=== PATIENT | male | born 2000 | race American Indian/Alaskan Native ===

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

== ENCOUNTER 2022-09-16 19:58 | Emergency (ER) | payer BC, MEDICAID, SELFPAY ==
--- NOTE | ~2022-09-16 | XR_ITS ---
EXAMINATION: XR HAND, RIGHT CLINICAL INFORMATION: Hyperextended third through fifth digits. COMPARISON: None available. TECHNIQUE: PA, lateral, and oblique views of the right hand. FINDINGS: No acute fractures or subluxation. No significant degenerative changes. No unexpected radiopaque foreign bodies. XR/XR hand RT min 3V IMPRESSION: No acute fractures or subluxation.
[2022-09-16 20:00] VITALS: BP 117/71; PULSE 72; RESP 18; TEMP 36.9; O2SAT 99; BMI 21.7
--- NOTE | 2022-09-16 20:00 | ED.UPPEXIN ---
HPI - Extremity Injury (Upper) General Chief Complaint: Extremity Injury, Upper <CHAR Acuna Last Filed: 09/16/22 20:04> Stated Complaint: right hand inj <CHAR Acuna Last Filed: 09/16/22 20:04> Time Seen by Provider: 09/16/22 20:08 <CHAR Acuna Last Filed: 09/16/22 20:04> Source: patient <CHAR Llamas Last Filed: 09/16/22 20:34> Mode of arrival: ambulatory <CHAR Llamas Last Filed: 09/16/22 20:34> Limitations: no limitations <CHAR Llamas Last Filed: 09/16/22 20:34> History of Present Illness HPI narrative: 22 year old male with past medical hisory of right boxer's fracture, mood disorders, anxiety and ADHD presents to ED as a walk in with right hand pain. Patient reports the pain started after playing basketball and falling on his oustretched hand, flexing the pinky finger underneath his hand. Pain started immediately, patient states he is unable to flex the finger fully. Patient reports the pain is worse with movement and better with rest, and localized mainly to the pinky without radiation. At this time denies numbness and tingling. Patient states he has a non-healing boxer's fracture in the right hand and is right-hand dominant. To note, when patient fell he did not hit his head or lose conciousness, and no preceding symptoms to fall <CHAR Llamas Last Filed: 09/16/22 20:34> Related Data Home Medications: Previous Rx's Medication Instructions Recorded ibuprofen 800 mg tablet 800 mg PO Q8H PRN pain #15 tabs 10/12/20 ibuprofen 600 mg tablet 600 mg PO Q6H PRN pain #60 tabs 11/13/20 <CHAR Acuna Last Filed: 09/16/22 20:04> Allergies/Adverse Reactions: Allergies Allergy/AdvReac Type Severity Reaction Status Date / Time No Known Allergies Allergy Verified 08/04/21 21:12 <CHAR Acuna Last Filed: 09/16/22 20:04> Review of Systems Review of Systems: Constitutional : No Weight loss, No Fever, No Chills, No Fatigue, No Malaise ENT/Mouth : No sore throat, No Rhinorrhea Eyes: No Eye Pain, No Swelling, No Redness Cardiovascular : No Chest Pain, No SOB, No Dyspnea on Exertion, No Orthopnea, No Edema, No Palpitations Respiratory : No Cough, No Sputum, No Wheezing Gastrointestinal : No Nausea, No Vomiting, No Diarrhea, No Constipation, No abdominal Pain, No Hematochezia, No Melena Genitourinary : No Dysuria, No Urinary Frequency, No Hematuria, Musculoskeletal : + joint pain, No Myalgias, + Joint Swelling Skin : No Skin Lesions, No rash Neuro : No Weakness, No Numbness, No Dizziness, No Headache Psych : No Anxiety/Panic, No Depression All other systems reviewed and are negative <CHAR Llamas - Last Filed: 09/16/22 20:34> Yes all other systems are reviewed and are negative <CHAR Llamas - Last Filed: 09/16/22 20:34> [facility] Past Medical History Attestation statement: The following information was validated with the patient. <CHAR Llamas - Last Filed: 09/16/22 20:34> Source: old records reviewed and nursing notes reviewed <CHAR Llamas - Last Filed: 09/16/22 20:34> Medical History: Medical History ADHD Anxiety Mood disorder <CHAR Acuna - Last Filed: 09/16/22 20:04> Social History Social History: Social History Alcohol intake: never Patient Tobacco Use Status: Never used Tobacco <CHAR Acuna - Last Filed: 09/16/22 20:04> Physical Exam Vital Signs: Vital Signs: Last Vital Signs Temp 98.5 F 09/16/22 20:00 Pulse 72 09/16/22 20:00 Resp 18 09/16/22 20:00 BP 117/71 09/16/22 20:00 Pulse Ox 99 09/16/22 20:00 O2 Del Method Room Air 09/16/22 20:00 BMI result Body Mass Index 21.7 <CHAR Acuna - Last Filed: 09/16/22 20:04> Vital Signs: Last Vital Signs Temp 98.5 F 09/16/22 20:00 Pulse 72 09/16/22 20:00 Resp 18 09/16/22 20:00 BP 117/71 09/16/22 20:00 Pulse Ox 99 09/16/22 20:00 O2 Del Method Room Air 09/16/22 20:00 BMI result Body Mass Index 21.7 vss <CHAR Llamas - Last Filed: 09/16/22 20:34> Appearance: Alert.? Oriented X3.? No acute distress.? Head: Normocephalic, atraumatic, no step-offs or deformities Eyes: Pupils equal, round and reactive to light.? Neck: Normal inspection.? Neck supple.? CVS: Normal heart rate and rhythm.? Pulses normal.? Respiratory: No respiratory distress.? Breath sounds normal.? Abdomen: Soft and nontender.? Skin: Skin warm and dry.? Normal skin color.? Normal skin turgor.? Extremities: No lower extremity edema.?+ 5/5 strength to bilateral upper and lower extremities. Painful ROM of R fifth digit with limited ROM due to pain. 2+ radial pulses equal and bilateral. No wrist drop. Cap refill intact to bilateral upper extremities. Neuro: Oriented X 3.? No motor deficit.? No sensory deficit. CN 2-12 intact <CHAR Llamas - Last Filed: 09/16/22 20:34> Course Course Course Narrative: RME: 22yo M w/no sig PMHx c/o right hand pain s/p hyperextension injury while playing basketball [employer]. Admits ball hit hand and extended. On exam +ttp to MCP digits 3-5. unable to extend at 5th DIP, concern for avulsion fx. finger to thumb opposition intact XRs ordered Full HPI, ROS and PE to be performed by primary ED provider. <CHAR Acuna - Last Filed: 09/16/22 20:04> Reevaluation(s) Reevaluation #1: Xray unremarkable. However, unable to assess ligaments and tendons if pain persists he should follow up with the orthopedic team as he may require an MRI for further evaluation. Will tamika-tape fingers. ?Recommend patient rest, ice and elevate the fifth digit. Educated patient on diagnosis and treatment plan, answered all question, patient verbalizes understanding. At this time patient will be discharged home, advised to return with new or worsening symptoms. Educated on worrisome signs and symptoms and when to return. At this time I feel comfortable discharge home. <CHAR Llamas - Last Filed: 09/16/22 20:34> Time: 20:32 <CHAR Llamas Last Filed: 09/16/22 20:34> Medical Decision Making Medical Decision Making MDM Narrative: 2015 22 year old male presents with right fifth digit pain secondary to fall on outstretched hand. Right hand dominant, denies numbness or tingling. Physical exam significant for no lower extremity edema.?+ 5/5 strength to bilateral upper and lower extremities. Painful ROM of R fifth digit with limited ROM due to pain. 2+ radial pulses equal and bilateral. No wrist drop. Cap refill intact to bilateral upper extremities. This is likely a sprain or a strain, unlikely fracture/dislocation. No signs of threatened limb or neurovascular compromise. plan- imaging . Offered pain meds refused. <CHAR Llamas Last Filed: 09/16/22 20:34> Differential Diagnosis Differential Diagnoses: The differential diagnosis associated with the presentation includes <CHAR Llamas Last Filed: 09/16/22 20:34> This is likely a sprain or a strain, unlikely fracture/dislocation. No signs of threatened limb or neurovascular compromise. <CHAR Llamas Last Filed: 09/16/22 20:34> Admission/Observation Consideration of admission/observation: Escalation of care including admission/observation considered <CHAR Llamas Last Filed: 09/16/22 20:34> not indicated <CHAR Llamas - Last Filed: 09/16/22 20:34> Independent Interpretation I performed an independent interpretation of an: Plain X-Ray <CHAR Llamas Last Filed: 09/16/22 20:34> Radiology Impression Discussion of test interpretation with radiology: I have reviewed the radiologist's reading. <CHAR Llamas - Last Filed: 09/16/22 20:34> External Record Review External record reviewed: Inpatient record, Office record, Outpatient record, Prior outpatient labs, Prior outpatient radiology, Primary care record and Outside ED record <CHAR Llamas - Last Filed: 09/16/22 20:34> Core Measures AMI core measures followed: Yes <CHAR Llamas - Last Filed: 09/16/22 20:34> Measure exclusions: not indicated <CHAR Llamas - Last Filed: 09/16/22 20:34> Critical Care Time Critical Care Time Critical Care Time: No <CHAR Llamas - Last Filed: 09/16/22 20:34> Discharge Plan Discharge Clinical Impression: Finger pain, right <CHAR Acuna - Last Filed: 09/16/22 20:04> Patient Disposition: Home, Self-Care <CHAR Acuna - Last Filed: 09/16/22 20:04> Instructions: R.I.C.E. Treatment (ED) <CHAR Acuna - Last Filed: 09/16/22 20:04> Additional Instructions: Take your medications as prescribed. If you were prescribed antibiotics today, it is important that you take your medication to their entirety, do not skip any doses, do not finish them early. Follow-up with your primary care provider this week. Pain persist you should see the orthopedic team you may require an MRI to investigate ligaments and tendons. Your x-ray did not show fractures or dislocations. Return to the emergency department with new or worsening symptoms. Such as fevers, chills, chest pain, shortness of breath, nausea, vomiting, dizziness, headache, vision changes, lethargy In case of emergency call 911 If you experience pain you can take ibuprofen every 6 hours, Tylenol every 4 as needed for pain or discomfort. Please follow the [facility] treatment guidelines. Do not take more than the recommended daily dose of Tylenol and ibuprofen. XR/XR hand RT min 3V IMPRESSION: No acute fractures or subluxation. <CHAR Acuna - Last Filed: 09/16/22 20:04> Prescriptions: No Action ibuprofen 600 mg tablet 600 mg PO Q6H PRN (Reason: pain) Qty: 60 0RF ibuprofen 800 mg tablet 800 mg PO Q8H PRN (Reason: pain) Qty: 15 0RF <CHAR Acuna - Last Filed: 09/16/22 20:04> Referrals: [facility] – [place] [facility] [Provider Group] - 1 week <CHAR Acuna - Last Filed: 09/16/22 20:04> Stand Alone Forms: Work/School Release <CHAR Acuna - Last Filed: 09/16/22 20:04>
--- NOTE | 2022-09-16 21:11 | PC.NURSE ---
3rd-5th digits tamika taped together, pt tolerated well, reviewed RICE instruction.
== END 2022-09-16 21:19 | disposition home or self-care (01) ==
PROVIDERS: Emergency Provider Emergency Medicine
DX: M79.644 Pain in right finger(s) (principal); M79.641 Pain in right hand
CPT/HCPCS: 73130; 99282; 99283

== ENCOUNTER 2023-09-12 19:13 | Emergency (ER) | payer BC, SELFPAY ==
--- NOTE | ~2023-09-12 | XR_ITS ---
EXAMINATION: XR ANKLE, LEFT CLINICAL INFORMATION: Fall COMPARISON: None available. TECHNIQUE: AP, lateral, and mortise views of the left ankle. FINDINGS: Marked soft tissue swelling at the left ankle, most pronounced laterally with an associated ankle joint effusion. Small osseous fragments at the tip of the lateral malleolus likely correspond to small avulsion fractures. Talocrural joint is otherwise well-preserved. Ankle mortise is symmetric. No additional fractures are identified. Probable Stieda process or os trigonum. XR/XR ankle LT min 3V IMPRESSION: Small avulsion fractures at the tip of the lateral malleolus with associated soft tissue swelling and ankle joint effusion.
--- NOTE | 2023-09-12 19:15 | ED.GENADULT ---
HPI - General Adult General Chief complaint: Extremity Injury, Lower Stated complaint: L ankle pain, playing basketball Time Seen by Provider: 09/12/23 22:58 Source: patient Mode of arrival: ambulatory Limitations: no limitations History of Present Illness HPI narrative: Patient is a 23-year-old male who presents emergency department for evaluation of left ankle injury. Reports he was playing basketball 45 minutes prior to arrival and fell resulting in inversion injury of the foot. Has localized pain and swelling to the lateral malleolus. Denies numbness or tingling. Related Data Previous Rx's ?Medication ?Instructions ?Recorded ibuprofen 800 mg tablet 800 mg PO Q8H PRN pain #15 tabs 10/12/20 ibuprofen 600 mg tablet 600 mg PO Q6H PRN pain #60 tabs 11/13/20 Allergies Allergy/AdvReac Type Severity Reaction Status Date / Time No Known Allergies Allergy Verified 09/12/23 19:19 Review of Systems Review of Systems: Yes all other systems are reviewed and are negative [facility] Past Medical History Attestation statement: The following information was validated with the patient. Source: old records reviewed Medical History ADHD Mood disorder Anxiety Social History Social History Alcohol intake: never Patient Tobacco Use Status: Never used Tobacco Advance Directives: No Advance Directives Information Provided: Yes Physical Exam ED Vital Signs: Vital Signs - 24 hr 09/12/23 19:17 Temperature 98.7 F Pulse Rate 69 Respiratory Rate 18 Blood Pressure 128/68 Pulse Oximetry 100 Oxygen Delivery Method Room Air BMI result Body Mass Index 22.4 Appearance: Alert.?Oriented to person, place and time. No acute distress.?Normal affect.? Neck: Normal inspection.? Neck supple.?? CVS: Heart sounds normal. Normal heart rate and rhythm.? Pulses normal.?? Respiratory: No respiratory distress.? Lung sounds clear to auscultation bilaterally? Skin: Skin warm and dry.? Normal skin color.? Normal skin turgor.?? Extremities: Localized swelling ecchymosis to the left lateral malleolus. 2+ DP/PT pulse bilaterally.? No calf ttp? Neuro: Moves all extremities spontaneously. Sensation intact bilaterally. CN II-XII intact. No focal neuro deficits. Ambulates with antalgic gait. Course Course Course Narrative: RME- 23 year old male presents for evaluation of left ankle pain. He fell playing basketball. Plan for xrays of the left ankle Procedures Orthopedic Splinting/Casting Injury #1: Side: left Lower Extremity Injury Location: lower leg and ankle Lower Extremity Immobilizer: posterior splint Other Orthopedic Equipment: crutches Medical Decision Making Medical Decision Making MDM Narrative: Patient is a 23-year-old male who presents emergency department for evaluation of traumatic left ankle pain as per HPI. At the time examination swelling in ecchymosis to the left lateral malleolus tenderness palpation concerning for fracture. XR was obtained which reveals a fractures of the left lateral malleolus joint effusion. He was placed in a posterior short-leg splint, advised use of crutches he will ever declines reporting that he has a pair at home already. At this time extremities neurovascularly intact distally after application of splint. Recommend outpatient follow-up with orthopedics. Discussed worrisome signs and symptoms that would warrant re-evaluation in the emergency department. All questions answered. Stable for discharge Differential Diagnosis Differential Diagnoses: The differential diagnosis associated with the presentation includes (See narrative above) Admission/Observation Consideration of admission/observation: Escalation of care including admission/observation considered (See narrative above) Independent Interpretation I performed an independent interpretation of an: Plain X-Ray (Lateral malleolus avulsion fracture) Radiology Impression Discussion of test interpretation with radiology: I have reviewed the radiologist's reading. Radiologist Impression: XR/XR ankle LT min 3V IMPRESSION: Small avulsion fractures at the tip of the lateral malleolus with associated soft tissue swelling and ankle joint effusion. Prescription Management I considered prescription management with: Pain Medication Discharge Plan Discharge Clinical Impression: Ankle fracture Patient Disposition: Home, Self-Care Instructions: Ankle Fracture (ED), Crutch Instructions (ED) Additional Instructions: You can take ibuprofen 200 mg, 3 tablets (600mg) every 6-8 hours as needed for pain, in addition to Tylenol 500 mg, 2 tablets (1,000mg) every 4-6 hours as needed for pain, but not to exceed 3 doses daily (3,000mg).? Follow-up with Orthopedics, contact their office for evaluation. Return back to emergency department any new or worsening symptoms or concerns. Prescriptions: No Action ibuprofen 600 mg tablet 600 mg PO Q6H PRN (Reason: pain) Qty: 60 0RF ibuprofen 800 mg tablet 800 mg PO Q8H PRN (Reason: pain) Qty: 15 0RF Referrals: Dashawn Anglin MD [Physician] - Print Language: Romanian
[2023-09-12 19:17] VITALS: BP 128/68; PULSE 69; RESP 18; TEMP 37.1; O2SAT 100; BMI 22.4
[2023-09-13 01:01] VITALS: BP 118/60; PULSE 65; RESP 18; TEMP 36.6; O2SAT 100
--- NOTE | 2023-09-13 01:02 | MHC.EDTECH ---
Assisted Jose [employer] with a posterior short leg splint ,patient tolerated well,patient refused crutches,patient stated I have some at home Jose [employer] APPRENTICE was made aware.
[2023-09-13 01:24] VITALS: BP 167/78; PULSE 80; RESP 18; TEMP 36.7; O2SAT 96
== END 2023-09-13 01:25 | disposition home or self-care (01) ==
PROVIDERS: Emergency Provider Internal Medicine
DX: S82.892A Other fracture of left lower leg, initial encounter for closed fracture (principal); X50.1XXA Overexertion from prolonged static or awkward postures, initial encounter; Y93.67 Activity, basketball; Y92.9 Unspecified place or not applicable; Y99.9 Unspecified external cause status
CPT/HCPCS: 29515; 73610; 99283

== ENCOUNTER 2023-11-01 08:01 | Emergency (ER) | payer BC, SELFPAY ==
[2023-11-01 08:08] VITALS: BP 120/64; PULSE 50; RESP 18; TEMP 36.8; O2SAT 98; BMI 23.1
--- NOTE | 2023-11-01 08:47 | ED.WOUNDLAC ---
HPI - Wound/Laceration General Chief Complaint: Head Injury Stated Complaint: Facial lac Time Seen by Provider: 11/01/23 08:25 Source: patient Mode of arrival: ambulatory Limitations: no limitations History of Present Illness ED Provider: SOCO HPI narrative: 23 yo male with no PMH was walking last night tripped and fell hit L side of face on dog fence unsure of Tdap history and denies any other injury or LOC - injury 11pm last night. Onset (ago): hour(s) (11pm last night) Location: face Place: outdoors Patient tetanus UTD: No Context: fall Associated symptoms: none Treatments prior to arrival: bandage Related Data Previous Rx's ?Medication ?Instructions ?Recorded ibuprofen 800 mg tablet 800 mg PO Q8H PRN pain #15 tabs 10/12/20 ibuprofen 600 mg tablet 600 mg PO Q6H PRN pain #60 tabs 11/13/20 Allergies Allergy/AdvReac Type Severity Reaction Status Date / Time No Known Allergies Allergy Verified 11/01/23 08:10 Review of Systems Review of Systems: Constitutional : No Fever, No Chills, Cardiovascular : No Chest Pain, No SOB Respiratory : No Dyspnea Gastrointestinal : No abdominal pain Musculoskeletal : No Joint Swelling Skin : No rash, positive skin laceration Neuro : No Weakness, No Numbness all other systems reviewed and are negative ON LICENSE OF [facility] Past Medical History Attestation statement: The following information was validated with the patient. Source: old records reviewed Medical History ADHD Mood disorder Anxiety Social History Social History Alcohol intake: never Patient Tobacco Use Status: Never used Tobacco Advance Directives: No Advance Directives Information Provided: No Do you have a plan to hurt others: No Plan Physical Exam Vital Signs: Vital Signs: Last Vital Signs Temp 98.2 F 11/01/23 08:08 Pulse 50 11/01/23 08:08 Resp 18 11/01/23 08:08 BP 120/64 11/01/23 08:08 Pulse Ox 98 11/01/23 08:08 O2 Del Method Room Air 11/01/23 08:08 BMI result Body Mass Index 23.1 Appearance: Alert. Oriented X3. No acute distress. Eyes: Pupils equal, round and reactive to light. ENT: Pharynx normal. L side of face lower jaw not through and through jagged 3cm laceration noted Neck: Normal inspection. Neck supple. CVS: Normal heart rate and rhythm. Pulses normal. Respiratory: No respiratory distress. Breath sounds normal. Abdomen: Soft and nontender. Skin: Skin warm and dry. Normal skin color. Normal skin turgor. Extremities: No lower extremity edema. Neuro: Oriented X 3. No motor deficit. No sensory deficit. Course Course Course Narrative: sutures done by PA Medical Decision Making Medical Decision Making [facility] Narrative: 23 yo male s/p mechanical fall here with laceration to L side of jaw no LOC no headstrike not on thinners at this time will update Tdap and provide laceration closure - no other injuries reported. Differential Diagnosis Differential Diagnoses: The differential diagnosis associated with the presentation includes laceration Procedures Procedure Narrative Procedure Narrative: Laceration to left side of jaw closed with four 6-0 prolene sutures. lidocaine used to numb area prior to suture placement. Patient educated to return for suture removal in 5-7 days and not shave his telles around the sutures before this. Patient tolerated the procedure well with no complaints. Laceration Laceration 1: Site: face Side (If applicable): left Size (cm): 3 Description: irregular Depth: simple, single layer Local Anesthetic: lidocaine 1% Amount of anesthesia used (mL): 4 Pre-repair: wound explored, irrigated extensively and deep structures intact Skin layer closed with: other (prolene) Size (cm): 6-0 Number of sutures: 4 Technique: simple, interrupted Discharge Plan Discharge Clinical Impression: Laceration of face Qualifiers: Encounter type: initial encounter Qualified Code(s): S01.81XA - Laceration without foreign body of other part of head, initial encounter Patient Disposition: Home, Self-Care Instructions: Laceration (ED) Additional Instructions: okay to shower in 24 hours but no pool, ocean, hot tub remove sutures in 5 to 7 days monitor for redness, swelling, yellow drainage, fevers or signs of infection Prescriptions: No Action ibuprofen 600 mg tablet 600 mg PO Q6H PRN (Reason: pain) Qty: 60 0RF ibuprofen 800 mg tablet 800 mg PO Q8H PRN (Reason: pain) Qty: 15 0RF Print Language: Frisian
[2023-11-01] MEDS: Diphth,Pertus(ACell),Tet Adult 0.5 ML SYRINGE IM (09:35)
[2023-11-01] MEDS: Lidocaine HCl 1 % MPF 5 ML VIAL SUBCUT (09:36)
[2023-11-01 09:39] VITALS: BP 126/68; PULSE 52; RESP 14; TEMP 36.6; O2SAT 99
== END 2023-11-01 09:39 | disposition home or self-care (01) ==
PROVIDERS: Emergency Provider Emergency Medicine
DX: S01.81XA Laceration without foreign body of other part of head, initial encounter (principal); W01.0XXA Fall on same level from slipping, tripping and stumbling without subsequent striking against object, initial encounter; Y93.01 Activity, walking, marching and hiking; Y92.9 Unspecified place or not applicable; Y99.9 Unspecified external cause status
CPT/HCPCS: 12013; 90471; 90715; 99283; 99284

== ENCOUNTER 2023-12-01 18:32 | Emergency (ER) | payer BC, SELFPAY ==
[2023-12-01 18:43] VITALS: BP 137/55; PULSE 90; RESP 18; TEMP 36.3; O2SAT 97; BMI 21.7
[2023-12-01 19:05] LABS: MANUAL DIFF FLAG NO
[2023-12-01 19:07] LABS: Basophils Absolute Auto 0.1 X10*3/uL (0.0-0.2); Basophils Percent Auto 0.8 % (0-2); Eosinophils Absolute Auto 0.1 X10*3/uL (0.0-0.4); Eosinophils Percent Auto 1.1 % (0-4); Hematocrit 44.4 % (42.0-52.0); Hemoglobin 15.5 g/dl (14.0-18.0); Imm Gran Abs Auto 0.02 X10*3/uL (0.00-0.03); Imm Gran Pct Auto 0.2 % (0.0-0.4); Lymphocytes Absolute Auto 3.5 X10*3/uL (1.2-4.9); Lymphocytes Percent Auto 39.9 % (20-40); Mean Corpuscular HGB Conc 34.9 g/dl (31.0-36.0); Mean Corpuscular Hemoglobin 29.5 pg (27.0-33.0); Mean Corpuscular Volume 84.6 fL (80.0-98.0); Mean Platelet Volume 10.3 fL (9.4-12.4); Monocytes Absolute Auto 0.7 X10*3/uL (0.1-1.2); Monocytes Percent Auto 7.6 % (2-11); Neutrophils Absolute Auto 4.5 x10*3/uL (2.0-8.3); Neutrophils Percent Auto 50.4 % (45-73); Platelet Count 191 X10*3/uL (160-400); Red Blood Count 5.25 X10*6/uL (4.60-5.80); Red Cell Distribution Width 13.8 % (11.0-16.0); White Blood Count 8.9 X10*3/uL (4.8-10.8)
[2023-12-01 19:09] VITALS: BP 123/60; PULSE 62; RESP 15; TEMP 36.7; O2SAT 98
--- NOTE | 2023-12-01 19:09 | ED_ITS ---
HPI - General Adult General Chief complaint: ETOH/Substance Use Stated complaint: nausea Time Seen by Provider: 12/01/23 19:07 History of Present Illness ED Provider: Dr. Cunningham HPI narrative: 23 y/o M patient; without significant PMH; presents with father with report of altered mental status. Patient reports he drank alcohol today and ate edible marijuana prior to arrival. He otherwise reports anxiety and nausea with one episode of vomiting. He denies: chest pain, SOB, cough/congestion, abdominal pain, fever or chills. Related Data Previous Rx's ?Medication ?Instructions ?Recorded ibuprofen 800 mg tablet 800 mg PO Q8H PRN pain #15 tabs 10/12/20 ibuprofen 600 mg tablet 600 mg PO Q6H PRN pain #60 tabs 11/13/20 Allergies Allergy/AdvReac Type Severity Reaction Status Date / Time No Known Allergies Allergy Verified 12/01/23 18:47 Review of Systems 2 Review of Systems: Yes all other systems are reviewed and are negative Neurologic: Denies Sensory deficit (Neuro) [facility] Past Medical History Attestation statement: The following information was validated with the patient. Source: old records reviewed Medical History ADHD Mood disorder Anxiety Social History Social History Alcohol intake: never Patient Tobacco Use Status: Never used Tobacco Advance Directives: No Advance Directives Information Provided: No Physical Exam ED Vital Signs: Vital Signs - 24 hr 12/01/23 18:43 12/01/23 19:09 Temperature 97.3 F 98.1 F Pulse Rate 90 62 Respiratory Rate 18 15 Blood Pressure 137/55 L 123/60 Pulse Oximetry 97 98 Oxygen Delivery Method Room Air Room Air BMI result Body Mass Index 21.7 Patient is afebrile and hemodynamically stable Const General: cooperative Orientation/consciousness: patient oriented x3 HENMT Head: Yes normal to inspection and Yes atraumatic Eyes General: appearance normal, both eyes and all related structures Pupils: Equal, round and reactive pupils present EOM: EOMs intact bilaterally Neck Neck: Yes normal visual inspection, Yes full ROM, Yes supple and No tender Chest Chest palpation & inspection: normal inspection of the chest and normal palpation of entire chest wall Resp Effort & Inspection: normal respiratory effort, able to speak in complete sentences, no cough and no respiratory distress Auscultation: clear to auscultation bilaterally Cardio Rate: regular rate Rhythm: regular rhythm Peripheral pulses: Peripheral pulses 2+ throughout GI Inspection: Yes normal to inspection, No Abdominal wall edema and No distended Palpation (GI): Soft to palpation, not firm, nontender, no guarding and not rigid Auscultation: normal bowel sounds General: Yes no CVA tenderness Back/Spine/Pelvis Back: no CVA tenderness Skin General skin exam: no rashes or lesions noted Neuro General: patient oriented x3 Cranial nerves: Yes Equal, round and reactive pupils present Motor exam (neuro): 5/5 motor strength present throughout Sensory Exam: No Sensory deficit (Neuro) Course Course Course Narrative: Patient is afebrile and hemodynamically stable. Reviewed triage orders. Will plan on period of observation. Patient is sleeping comfortably. No further vomiting. Discussed with patient's father at bedside who reports he brought him to the emergency department because the patient appeared anxious. At this time he feels comfortable taking patient home. Plan: Discharge to home with PCP follow up Return precautions given Medical Decision Making Lab Data 12/01/23 19:01 12/01/23 19:01 Labs: Lab Results 12/01/23 Range/Units 19:01 WBC 8.9 (4.8-10.8) X10*3/uL RBC 5.25 (4.60-5.80) X10*6/uL Hgb 15.5 (14.0-18.0) g/dl Hct 44.4 (42.0-52.0) % MCV 84.6 (80.0-98.0) fL MCH 29.5 (27.0-33.0) pg MCHC 34.9 (31.0-36.0) g/dl RDW 13.8 (11.0-16.0) % Plt Count 191 (160-400) X10*3/uL MPV 10.3 (9.4-12.4) fL Immature Gran % (Auto) 0.2 (0.0-0.4) % Neut % (Auto) 50.4 (45-73) % Lymph % (Auto) 39.9 (20-40) % Cottle % (Auto) 7.6 (2-11) % Eos % (Auto) 1.1 (0-4) % Baso % (Auto) 0.8 (0-2) % Lymph # (Auto) 3.5 (1.2-4.9) X10*3/uL Cottle # (Auto) 0.7 (0.1-1.2) X10*3/uL Eos # (Auto) 0.1 (0.0-0.4) X10*3/uL Baso # (Auto) 0.1 (0.0-0.2) X10*3/uL Abs Immat Gran (auto) 0.02 (0.00-0.03) X10*3/uL Absolute Neuts (auto) 4.5 (2.0-8.3) x10*3/uL Absolute Nucleated RBC 0.000 (0.0-0.012) X10*3/uL Nucleated RBC % (auto) 0.0 (0.0-0.2) /100WBC Sodium 143 (135-145) mmol/L Potassium 3.2 L (3.3-5.1) mmol/L Chloride 109 H (96-108) mmol/L Carbon Dioxide 23 (22-29) mmol/L Anion Gap 14 (12-20) BUN 13 (9-16) mg/dL Creatinine 1.19 (0.5-1.4) mg/dL Estim Creat Clear Calc 100.8 Estimated GFR > 60 Random Glucose 123 H (60-115) mg/dL Calcium 9.5 (8.4-10.2) mg/dL Total Bilirubin 1.1 H (0.0-1.0) mg/dL AST 26 (5-37) U/L ALT 16 (0-40) U/L Alkaline Phosphatase 75 (39-117) U/L Total Protein 7.6 (6.5-8.0) g/dL Albumin 4.5 (3.5-5.0) g/dL Ethyl Alcohol < 10 mg/dL Discharge Plan Discharge Clinical Impression: Marijuana intoxication Patient Disposition: Home, Self-Care Instructions: Cannabis Abuse (ED) Additional Instructions: As we discussed, you were seen today for marijuana intoxication. You were observed in the emergency department. Recommend you avoid marijuana in the future due to the risk of increased anxiety and paranoia. Follow up with your PCP within 24 - 48 hours to discuss your recent ED visit and for a re-evaluation. Prescriptions: No Action ibuprofen 600 mg tablet 600 mg PO Q6H PRN (Reason: pain) Qty: 60 0RF ibuprofen 800 mg tablet 800 mg PO Q8H PRN (Reason: pain) Qty: 15 0RF Print Language: Swedish
[2023-12-01 19:21] LABS: Alanine Aminotransferase 16 U/L (0-40); Albumin Level 4.5 g/dL (3.5-5.0); Alkaline Phosphatase 75 U/L (39-117); Anion Gap 14 (12-20); Aspartate Amino Transferase 26 U/L (5-37); Bilirubin Total 1.1 mg/dL (0.0-1.0); Blood Urea Nitrogen 13 mg/dL (9-16); Calcium 9.5 mg/dL (8.4-10.2); Carbon Dioxide 23 mmol/L (22-29); Chloride 109 mmol/L (96-108); Creatinine Clr Calc Pharmacy 100.8; Estimated Glomerular Filt Rate > 60; Ethanol < 10 mg/dL; Glucose Random 123 mg/dL (60-115); Potassium 3.2 mmol/L (3.3-5.1); Sodium 143 mmol/L (135-145); Total Protein 7.6 g/dL (6.5-8.0)
--- NOTE | 2023-12-01 20:09 | PC.NURSE ---
Parent requesting that patient be monitored until 2029, spoke with provider who is agreeable. Patient resting with eyes closed, breathing even and unlabored, no s/s of distress noted.
[2023-12-01] MEDS: Acetaminophen 325 MG TABLET 975 MG PO (20:51)
[2023-12-01 20:55] VITALS: BP 105/46; PULSE 56; RESP 15; TEMP 36.6; O2SAT 96
== END 2023-12-01 20:57 | disposition home or self-care (01) ==
PROVIDERS: Emergency Provider Emergency Medicine
DX: F12.929 Cannabis use, unspecified with intoxication, unspecified (principal); R41.82 Altered mental status, unspecified; R11.2 Nausea with vomiting, unspecified; F41.1 Generalized anxiety disorder; Z79.899 Other long term (current) drug therapy; Z51.81 Encounter for therapeutic drug level monitoring
CPT/HCPCS: 36415; 80053; 80307; 85025; 99283; 99284

== ENCOUNTER 2024-05-07 08:55 | Emergency (ER) | payer BC, SELFPAY ==
--- NOTE | ~2024-05-07 | CT_ITS ---
EXAMINATION: CT ABDOMEN AND PELVIS WITH CONTRAST CLINICAL INFORMATION: Abdominal pain. COMPARISON: CT abdomen and pelvis August 04, 2021 TECHNIQUE: Multidetector volumetric images were obtained from the superior aspect of the liver through the pubic symphysis following administration 85 mL of Omnipaque 350 intravenous contrast. Sagittal and coronal reformatted images were obtained on the technologist's workstation. Oral contrast: No This CT examination was performed using dose optimization techniques as appropriate, variously including the following: *Automated exposure control *Adjustment of mA and/or kV according to patient size (this includes techniques or standardized protocols for targeted exams where dose is matched to indication/reason for exam; i.e. extremities or head) *Use of iterative reconstruction technique DLP: 462 mGy-cm FINDINGS: LUNG BASES: The visualized lung bases are unremarkable. LIVER, GALLBLADDER, AND BILIARY TREE: The liver is normal in size, shape, and attenuation. No focal hepatic lesion or biliary ductal dilatation is present. The gallbladder is unremarkable with no evidence of radiopaque gallstones, gallbladder wall thickening, or obvious pericholecystic inflammatory changes. PANCREAS: Unremarkable. SPLEEN: Unremarkable. ADRENAL GLANDS: Unremarkable. KIDNEYS AND URETERS: The kidneys are normal in size, shape, and attenuation. No hydronephrosis, hydroureter, or calculi seen. No perinephric stranding. BLADDER: Unremarkable. GASTROINTESTINAL TRACT: The small and large bowel are unremarkable. The appendix is unremarkable. ABDOMINAL WALL: No significant hernia is appreciated. LYMPH NODES: Normal. VASCULAR: Unremarkable. PELVIC VISCERA: Unremarkable. OSSEOUS STRUCTURES: Bilateral spondylolysis of L5 pars interarticularis. No spondylolisthesis. Disc heights are maintained. Facet joints are normal. No acute osseous abnormality. CT/CT abdomen pelvis w IV con IMPRESSION: 1. No acute abnormality CT scan abdomen pelvis. Fleischner guidelines were followed. Electronically signed by: Timothy Aguilar MD 05/07/2024 07:45 PM EST
[2024-05-07 09:12] VITALS: BP 130/65; PULSE 69; RESP 20; TEMP 37.1; O2SAT 100; BMI 22.1
[2024-05-07 09:44] LABS: Hematocrit 49.3 % (42.0-52.0); Hemoglobin 16.8 g/dl (14.0-18.0); Mean Corpuscular HGB Conc 34.1 g/dl (31.0-36.0); Mean Corpuscular Hemoglobin 29.4 pg (27.0-33.0); Mean Corpuscular Volume 86.2 fL (80.0-98.0); Mean Platelet Volume 10.5 fL (9.4-12.4); Platelet Count 203 X10*3/uL (160-400); Red Blood Count 5.72 X10*6/uL (4.60-5.80); Red Cell Distribution Width 13.3 % (11.0-16.0); White Blood Count 18.4 X10*3/uL (4.8-10.8)
[2024-05-07 10:09] LABS: Albumin Level 4.9 g/dL (3.5-5.0); Anion Gap 13 (12-20); Aspartate Amino Transferase 49 U/L (5-37); Bilirubin Direct 0.5 mg/dL (0.0-0.5); Bilirubin Total 2.1 mg/dL (0.0-1.0); Blood Urea Nitrogen 17 mg/dL (9-16); Calcium 10.2 mg/dL (8.4-10.2); Carbon Dioxide 24 mmol/L (22-29); Chloride 106 mmol/L (96-108); Creatinine Clr Calc Pharmacy 106.3; Estimated Glomerular Filt Rate > 60; Glucose Random 96 mg/dL (60-115); Lipase 12 U/L (8-78); Potassium 4.3 mmol/L (3.3-5.1); Sodium 139 mmol/L (135-145); Total Protein 8.6 g/dL (6.5-8.0)
--- NOTE | 2024-05-07 10:09 | ED_ITS ---
HPI - Nausea/Vomiting/Diarrhea General Chief complaint: Abdominal Pain Stated complaint: Dehydrated vomiting Time Seen by Provider: 05/07/24 10:06 Source: patient Mode of arrival: ambulatory Limitations: no limitations History of Present Illness HPI Narrative: this is a 24 years old patient presented to the ED with a chief complaint of nausea vomiting diarrhea since early this morning about 02:00. Denies any fever or chills. He has no comorbidity no abdominal pain MD elicited complaint: nausea, vomiting and diarrhea Onset (ago): hour(s) (8) Description of vomiting: watery Description of diarrhea: watery Associated nausea: Yes Associated abdominal pain: No Location of pain: none Severity: mild Exacerbating factors: none Relieving factors: none Related Data Home Medications ?Medication ?Instructions ?Recorded ?Confirmed No Known Home Meds 03/19/24 03/19/24 Allergies Allergy/AdvReac Type Severity Reaction Status Date / Time No Known Allergies Allergy Verified 05/07/24 09:14 Review of Systems 2 Review of Systems: Yes all other systems are reviewed and are negative Gastrointestinal: Gastrointestinal: Denies melena, Denies hematochezia, Reports diarrhea, Reports nausea, Reports vomiting and Denies hematemesis Neurologic: Reports system reviewed and no additional complaints, except as documented PMFSH Past Medical History Medical History ADHD Mood disorder Anxiety Social History Social History Alcohol intake: current Alcohol intake frequency: a few times a week Patient Tobacco Use Status: Never used Tobacco Substance Use Type: Marijuana Advance Directives: No Advance Directives Information Provided: Yes Do you have a plan to hurt others: No Plan Physical Exam 2 Vital Signs: Vital Signs: Last Vital Signs Temp 98.3 F 05/07/24 11:14 Pulse 55 05/07/24 14:47 Resp 16 05/07/24 14:47 BP 128/49 L 05/07/24 14:47 Pulse Ox 100 05/07/24 14:47 O2 Del Method Room Air 05/07/24 14:47 BMI result Body Mass Index 22.1 he looks well is not toxic-appearing Const: General: cooperative Nutritional Appearance: well nourished O rientation/consciousness: patient oriented x3 Limitations: no limitations HEENT: Head: Yes normal to inspection Neck: Neck: Yes normal visual inspection and Yes full ROM Chest: Chest palpation & inspection: normal inspection of the chest Resp: Effort & Inspection: normal respiratory effort Auscultation: clear to auscultation bilaterally Cardio: Jugular venous distension: no JVD Rate: regular rate Rhythm: r egular rhythm GI: Inspection: Yes normal to inspection Palpation (GI): Soft to palpation, not firm, nontender and no guarding Percussion: Yes normal to percussion A uscultation: normal bowel sounds Skin: General skin exam: no rashes or lesions noted, elasticity normal and turgor normal Lesions: no lesions Rashes: no rashes Trauma: no lacerations or abrasions Neuro: General: patient oriented x3 Course Reevaluation(s) Reevaluation #1: Signed out to Dr Dr Siobhan Cameron ct pending Time: 16:35 Medications Administered Discontinued Medications Generic Name Dose Route Start Last Admin Trade Name Freq PRN Reason Stop Dose Admin Acetaminophen 650 mg 05/07/24 12:49 05/07/24 12:53 Acetaminophen 325 Mg Tablet PO 05/07/24 12:50 650 mg ONCE ONE Administration Sodium Chloride 1,000 mls @ 999 mls/hr 05/07/24 10:15 05/07/24 12:28 Ns IVCONT 05/07/24 11:15 Infused .Q1H1M CHEYANNE Infusion Sodium Chloride 1,000 mls @ 999 mls/hr 05/07/24 10:15 05/07/24 12:28 Ns IVCONT 05/07/24 11:15 Infused .Q1H1M CHEYANNE Infusion Sodium Chloride 1,000 mls @ 999 mls/hr 05/07/24 14:30 05/07/24 14:45 Ns IVCONT 05/07/24 15:30 999 mls/hr .Q1H1M CHEYANNE Administration Iohexol 85 ml 05/07/24 15:40 05/07/24 15:41 Iohexol 350 Mg/Ml 100 Ml Infus..Btl IV 05/07/24 15:41 85 ml ONCE ONE Administration Ketorolac Tromethamine 15 mg 05/07/24 15:09 05/07/24 15:30 Ketorolac Tromethamine 15 Mg/Ml Vial IVPUSH 05/07/24 15:10 15 mg ONCE ONE Administration Ondansetron HCl 4 mg 05/07/24 10:09 05/07/24 11:12 Ondansetron Hcl 4 Mg/2 Ml Vial IVPUSH 05/07/24 10:10 4 mg ONCE ONE Administration Pantoprazole Sodium 40 mg 05/07/24 14:30 05/07/24 14:45 Pantoprazole Sodium 40 Mg/10 Ml Vial IVPUSH 05/07/24 14:31 40 mg ONCE ONE Administration Medical Decision Making Medical Decision Making [facility] Narrative: patient presented to the ED complaining of nausea vomiting and diarrhea we will administer IV fluid antiemetic Differential Diagnosis Differential Diagnoses: The differential diagnosis associated with the presentation includes differential diagnosis gastroenteritis/viral syndrome/dehydration Lab Data 05/07/24 13:34 05/07/24 09:38 Labs: Lab Results 05/07/24 05/07/24 Range/Units 09:38 13:34 WBC 18.4 H 14.4 H (4.8-10.8) X10*3/uL RBC 5.72 5.04 (4.60-5.80) X10*6/uL Hgb 16.8 14.7 (14.0-18.0) g/dl Hct 49.3 43.2 (42.0-52.0) % MCV 86.2 85.7 (80.0-98.0) fL MCH 29.4 29.2 (27.0-33.0) pg MCHC 34.1 34.0 (31.0-36.0) g/dl RDW 13.3 13.4 (11.0-16.0) % Plt Count 203 163 (160-400) X10*3/uL MPV 10.5 10.5 (9.4-12.4) fL Immature Gran % (Auto) Cancelled Cancelled Neut % (Auto) Cancelled Cancelled Lymph % (Auto) Cancelled Cancelled Kleberg % (Auto) Cancelled Cancelled Eos % (Auto) Cancelled Cancelled Baso % (Auto) Cancelled Cancelled Lymph # (Auto) Cancelled Cancelled Kleberg # (Auto) Cancelled Cancelled Eos # (Auto) Cancelled Cancelled Baso # (Auto) Cancelled Cancelled Abs Immat Gran (auto) Cancelled Cancelled Absolute Neuts (auto) Cancelled Cancelled Absolute Nucleated RBC 0.000 0.000 (0.0-0.012) X10*3/uL Nucleated RBC % (auto) 0.0 0.0 (0.0-0.2) /100WBC Neutrophils % (Manual) 74 H 84 H (45-73) % Band Neutrophils % 14 H 11 H (3-5) % Lymphocytes % (Manual) 3 L 2 L (20-40) % Atypical Lymphs % (Man) 1 2 (0-6) % Monocytes % (Manual) 7 1 L (2-11) % Basophils % (Manual) 1 (0-2) % Abs Neuts (Manual) 16.2 H 13.7 H (2.0-8.3) X10*3/uL Lymphocytes # (Manual) 0.6 L 0.3 L (1.2-4.9) X10*3/uL Atyp Lymphs # (Manual) 0.2 0.3 x10*3/uL Monocytes # (Manual) 1.3 H 0.1 (0.1-1.2) X10*3/uL Basophils # (Manual) 0.2 (0.0-0.2) X10*3/uL Toxic Granulation PRESENT Toxic Vacuolation PRESENT PRESENT Platelet Estimate DECREASED DECREASED (NORMAL) Plt Morphology Comment NORMAL NORMAL RBC Morphology NOTED NOTED Microcytosis 1+ (5-14) 1+ (5-14) /OIF Macrocytosis 1+ (5-14) /OIF Acanthocytes (Spur) 1+ (0-2) /OIF Schistocytes 1+ (0-2) 1+ (0-2) /OIF Sodium 139 (135-145) mmol/L Potassium 4.3 D (3.3-5.1) mmol/L Chloride 106 (96-108) mmol/L Carbon Dioxide 24 (22-29) mmol/L Anion Gap 13 (12-20) BUN 17 H (9-16) mg/dL Creatinine 1.14 (0.5-1.4) mg/dL Estim Creat Clear Calc 106.3 Estimated GFR > 60 Random Glucose 96 (60-115) mg/dL Calcium 10.2 D (8.4-10.2) mg/dL Total Bilirubin 2.1 H (0.0-1.0) mg/dL Direct Bilirubin 0.5 (0.0-0.5) mg/dL AST 49 H (5-37) U/L ALT 26 (0-40) U/L Alkaline Phosphatase 79 (39-117) U/L Total Protein 8.6 H (6.5-8.0) g/dL Albumin 4.9 (3.5-5.0) g/dL Lipase 12 (8-78) U/L Discharge Plan Discharge Clinical Impression: Abdominal pain Qualifiers: Abdominal location: generalized Qualified Code(s): R10.84 - Generalized abdominal pain Diarrhea Qualifiers: Diarrhea type: unspecified type Qualified Code(s): R19.7 - Diarrhea, unspecified Patient Disposition: Still a Patient Prescriptions: No Action No Known Home Meds Print Language: Uzbek
[2024-05-07 10:14] LABS: Alanine Aminotransferase 26 U/L (0-40); Alkaline Phosphatase 79 U/L (39-117)
[2024-05-07] MEDS: 0.9 % Sodium Chloride 1,000 ML 999 ML IVCONT ×3 (10:17→14:45)
[2024-05-07 10:26] LABS: Neutrophils Percent Manual 74 % (45-73)
[2024-05-07 10:28] LABS: Atypical Lymph Absolute Manual 0.2 x10*3/uL; Atypical Lymphs Percent Manual 1 % (0-6); Band Neutrophils Percent 14 % (3-5); Basophils Abs Manual 0.2 X10*3/uL (0.0-0.2); Basophils Percent Manual 1 % (0-2); Lymphocytes Absolute Manual 0.6 X10*3/uL (1.2-4.9); Lymphocytes Percent Manual 3 % (20-40); Monocytes Absolute Manual 1.3 X10*3/uL (0.1-1.2); Monocytes Percent Manual 7 % (2-11); Neutrophils Absolute Manual 16.2 X10*3/uL (2.0-8.3)
[2024-05-07 10:29] LABS: Microcytosis 1+ (5-14) /OIF; RBC Morphology NOTED
[2024-05-07 10:30] LABS: Acanthocytes 1+ (0-2) /OIF; Platelet Estimate DECREASED (NORMAL); Platelet Morphology Comment NORMAL; Schistocytes 1+ (0-2) /OIF; Toxic Granulation PRESENT; Toxic Vacuolation PRESENT
[2024-05-07] MEDS: ondansetron HCL 4 MG/2 ML VIAL IVPUSH (11:12)
[2024-05-07 11:14] VITALS: BP 119/61; PULSE 54; RESP 14; TEMP 36.8; O2SAT 100
[2024-05-07] MEDS: Acetaminophen 325 MG TABLET 650 MG PO (12:53)
[2024-05-07 12:54] VITALS: BP 135/61; PULSE 74; RESP 16; O2SAT 100
[2024-05-07 13:40] LABS: Hematocrit 43.2 % (42.0-52.0); Hemoglobin 14.7 g/dl (14.0-18.0); Mean Corpuscular Hemoglobin 29.2 pg (27.0-33.0); Mean Corpuscular Volume 85.7 fL (80.0-98.0); Mean Platelet Volume 10.5 fL (9.4-12.4); Platelet Count 163 X10*3/uL (160-400); Red Blood Count 5.04 X10*6/uL (4.60-5.80); Red Cell Distribution Width 13.4 % (11.0-16.0); White Blood Count 14.4 X10*3/uL (4.8-10.8)
[2024-05-07 14:08] LABS: Neutrophils Percent Manual 84 % (45-73)
[2024-05-07 14:10] LABS: Atypical Lymph Absolute Manual 0.3 x10*3/uL; Atypical Lymphs Percent Manual 2 % (0-6); Band Neutrophils Percent 11 % (3-5); Lymphocytes Absolute Manual 0.3 X10*3/uL (1.2-4.9); Lymphocytes Percent Manual 2 % (20-40); Monocytes Absolute Manual 0.1 X10*3/uL (0.1-1.2); Monocytes Percent Manual 1 % (2-11); Neutrophils Absolute Manual 13.7 X10*3/uL (2.0-8.3)
[2024-05-07 14:12] LABS: Macrocytosis 1+ (5-14) /OIF; Microcytosis 1+ (5-14) /OIF; RBC Morphology NOTED
[2024-05-07 14:13] LABS: Platelet Estimate DECREASED (NORMAL); Platelet Morphology Comment NORMAL; Schistocytes 1+ (0-2) /OIF; Toxic Vacuolation PRESENT
[2024-05-07] MEDS: Pantoprazole Sodium 40 MG/10 ML VIAL IVPUSH (14:45)
[2024-05-07 14:47] VITALS: BP 128/49; PULSE 55; RESP 16; O2SAT 100
[2024-05-07] MEDS: Ketorolac Tromethamine 15 MG/ML VIAL IVPUSH (15:30)
[2024-05-07] MEDS: iohexoL 350 MG/ML 100 ML INFUS..BTL 85 ML IV (15:41)
[2024-05-07 16:51] VITALS: BP 115/47; PULSE 54; RESP 16; TEMP 36.7; O2SAT 98
[2024-05-07 17:19] LABS: Appearance Urine Clear; Color Urine Yellow; Glucose Urine UA Negative (Negative); Leukocyte Esterase Urine Negative (Negative); Nitrite Urine Negative (Negative); PH 5.5 (5.0-9.0); Specific Gravity - Urine >= 1.030 (1.005-1.025); Urine Blood Negative (Negative); Urine Ketones 40 mg/dL (Negative); Urine Protein Trace mg/dL (Neg-Trace)
[2024-05-07 17:22] LABS: Amphetamine Screen Urine Not Detected (Not Detect); Barbiturates, Urine Not Detected (Not Detect); Benzodiazepines Screen Urine Not Detected (Not Detect); Buprenorphine Scr Not Detected (Not Detect); Cannabinoid Screen Urine POSITIVE (Not Detect); Cocaine Screen Urine Not Detected (Not Detect); Fentanyl, urine Not Detected (Not Detect); Methadone Screen, Urine Not Detected (Not Detect); Opiate Screen Urine Not Detected (Not Detect); Oxycodone Screen Urine Not Detected (Not Detect); Phencyclidine Screen Urine Not Detected (Not Detect)
--- NOTE | 2024-05-07 19:22 | MHC.EDTECH ---
called [facility] at 1922 will read AbCT taken at 1429 next
[2024-05-07 20:02] VITALS: BP 115/47; PULSE 54; RESP 16; TEMP 36.7; O2SAT 98
== END 2024-05-07 20:03 | disposition home or self-care (01) ==
PROVIDERS: Emergency Provider Emergency Medicine
DX: R10.2 Pelvic and perineal pain (principal); E86.0 Dehydration; R11.2 Nausea with vomiting, unspecified; R10.84 Generalized abdominal pain; R19.7 Diarrhea, unspecified; Z79.899 Other long term (current) drug therapy; Z51.81 Encounter for therapeutic drug level monitoring
CPT/HCPCS: 36415; 74177; 80048; 80076; 80307; 81003; 83690; 85007; 85025; 85027; 96361; 96374; 96375; 99285; J1885; J2405; J2470; Q9967

== ENCOUNTER 2024-08-18 08:50 | Emergency (ER) | payer BC, SELFPAY ==
[2024-08-18 08:53] VITALS: BP 145/77; PULSE 84; RESP 20; TEMP 36.6; O2SAT 99; BMI 20.5
[2024-08-18 09:33] LABS: IDNOW Serial# 58CA691E; Strep A Nucleic Acid Negative (Negative)
[2024-08-18 09:42] LABS: Influenza A PCR NEGATIVE (Negative); Influenza B PCR NEGATIVE (Negative); Resp Syncy Virus RNA Qual PCR NEGATIVE (Negative); SARS COV2 PCR INHOUSE NEGATIVE (Negative)
[2024-08-18 10:36] LABS: Monotest Negative (Negative)
[2024-08-18 11:16] VITALS: BP 115/70; PULSE 84; RESP 16; TEMP 36.9; O2SAT 98
--- NOTE | 2024-08-18 11:20 | ED_ITS ---
HPI - URI/Sore Throat General Chief Complaint: Upper Respiratory Symptoms Stated Complaint: strep Time Seen by Provider: 08/18/24 11:20 Source: patient Mode of arrival: ambulatory Limitations: no limitations History of Present Illness ED Provider: Nakia Garner NP HPI Narrative: Patient is a 24-year-old male who presents emergency department for evaluation over the past 3 days has been experiencing at first a sore throat intermittent headache, now has pain to the bilateral upper and lower molars please see is having pain presents wisdom teeth coming in. Endorses odynophagia but is able to swallow without difficulty. Yesterday he took 2 doses of an antibiotic unsure which one that were left over from prior infection that his sister had, which has father had given him. Denies any OTC medications. Denies fevers, chills, dizziness, neck pain, neck stiffness, chest pain, shortness of breath, difficulty breathing, cough, nausea, vomiting, abdominal pain, numbness or tingling of the extremities, genitourinary symptoms. Related Data Previous Rx's ?Medication ?Instructions ?Recorded ondansetron 4 mg disintegrating 4 mg PO Q8H PRN nausea and 05/07/24 tablet vomiting #20 tabs ibuprofen 600 mg tablet 600 mg PO Q8H PRN fever or pain 08/18/24 #30 tabs phenol 1.5 %-glycerin 33 % mucosal 1 spray mucous membrane Q3-4H PRN 08/18/24 spray (Chloraseptic Max Sore sore throat #118 mL Throat) Allergies Allergy/AdvReac Type Severity Reaction Status Date / Time No Known Allergies Allergy Verified 08/18/24 08:56 Review of Systems Review of Systems: Yes all other systems are reviewed and are negative PMFSH Past Medical History Attestation statement: The following information was validated with the patient. Source: old records reviewed Medical History ADHD Mood disorder Anxiety Social History Social History Alcohol intake: current Alcohol intake frequency: a few times a week Patient Tobacco Use Status: Never used Tobacco Substance Use Type: Marijuana Advance Directives: No Advance Directives Information Provided: No Physical Exam Vital Signs: Vital Signs: Last Vital Signs Temp 98.5 F 08/18/24 11:25 Pulse 84 08/18/24 11:25 Resp 16 08/18/24 11:25 BP 115/70 08/18/24 11:25 Pulse Ox 98 08/18/24 11:25 O2 Del Method Room Air 08/18/24 11:25 BMI result Body Mass Index 20.5 Appearance: Alert.?Oriented to person, place and time. No acute distress.?Normal affect. Eyes: Pupils equal, round and reactive to light.? ENT: TM normal bilaterally. Pharynx Mildly erythematous without tonsillar hypertrophy or exudates. Uvula is midline. No trismus. No drooling. No hoarseness to the voice. Neck: Normal inspection.? Neck supple.??No cervical adenopathy CVS: Heart sounds normal. Normal heart rate and rhythm.? Pulses normal.?? Respiratory: No respiratory distress.? Lung sounds clear to auscultation bilaterally?? Abdomen: Soft and non-tender. Normoactive bowel sounds. Skin: Skin warm and dry.? Normal skin color.? ? Extremities: No lower extremity edema.? Neuro: Moves all extremities spontaneously. Sensation intact bilaterally. No motor deficits. Ambulates with normal steady gait. Medical Decision Making Medical Decision Making MDM Narrative: Patient is a 22-year-old male who presents for evaluation of sore throat, intermittent headache and dental pain as per HPI. COVID-19 /Influenza/RSV testing is negative. [place] screen is negative. Group a strep is negative, exam is not consistent with RPA/ [employer]. He is managing secretions, no airway compromise. At this time history and physical exam not consistent with ACS/PE/pneumonia. Well-appearing, nontoxic, afebrile, no tachycardia or tachypnea/hypoxia. Speaking clear full sentences, ambulatory with steady gait. Suspect a viral etiology, would defer antibiotics at this time. Discussed conservative treatment including rest, hydration, Tylenol/ibuprofen as needed for fever and body aches, saline nasal spray, humidifier, [id number] cold medication. Advised to follow-up with primary care provider as needed, discussed reasons to return back to the emergency department. All questions were answered. Patient discharged home in stable condition. Provided with a return to work/school note. Differential Diagnosis Differential Diagnoses: The differential diagnosis associated with the presentation includes ( See narrative above) Admission/Observation Consideration of admission/observation: Escalation of care including admission/observation considered ( see narrative above) Lab Data MDM Lab Attestation statement: I reviewed the patient's lab results. ( see narrative above) Labs: Lab Results 08/18/24 08/18/24 Range/Units 08:58 09:55 Monoscreen Negative (Negative) Influenza Type A (PCR) NEGATIVE (Negative) Influenza Type B (PCR) NEGATIVE (Negative) RSV RNA Qual (PCR) NEGATIVE (Negative) SARS-CoV-2 RNA (RT-PCR) NEGATIVE (Negative) S. pyogenes GrpA ALDO Negative (Negative) External Record Review External record reviewed: Outpatient record Prescription Management I considered prescription management with: Pain Medication ( acetaminophen/ibuprofen), Antibiotic ( Antibiotics deferred, suspect a viral etiology as per narrative above) and Other ( see narrative above) Discharge Plan Discharge Clinical Impression: Pharyngitis Patient Disposition: Home, Self-Care Instructions: Pharyngitis (ED) Additional Instructions: Be sure to rest, stay well hydrated drinking plenty of fluids, eat small frequent meals. Tylenol/ibuprofen can be used as needed for fever/pain. [id number] cold medications may be helpful as well for symptoms. Saline nasal spray, humidifier, throat lozenges and troat spray may be helpful as well. You may return to the emergency department with any new or worsening symptoms or concerns. Follow-up with your primary care provider as needed. Should remain out of school/ work until symptoms have resolved and have been without a fever for 24 hours without the use of Tylenol or ibuprofen. Prescriptions: New ibuprofen 600 mg tablet 600 mg PO Q8H PRN (Reason: fever or pain) Qty: 30 0RF Chloraseptic Max Sore Throat 1.5-33 % spray,non-aerosol 1 spray mucous membrane Q3-4H PRN (Reason: sore throat) Qty: 118 0RF Rx Instructions: leave on area for 15 seconds then spit out No Action ondansetron 4 mg tablet,disintegrating 4 mg PO Q8H PRN (Reason: nausea and vomiting) Qty: 20 0RF Referrals: Harinder Hoyt MD [Primary Care Provider] - Stand Alone Forms: Work/School Release Interventions: ED Discharge Assessment Last Done: 08/18/24 11:25 Discharge Date/Time: 08/18/24 11:25 Print Language: Hebrew
[2024-08-18 11:25] VITALS: BP 115/70; PULSE 84; RESP 16; TEMP 36.9; O2SAT 98
== END 2024-08-18 11:25 | disposition home or self-care (01) ==
PROVIDERS: Physician Assistant; Emergency Provider Emergency Medicine; PCP Pediatrics
DX: J02.9 Acute pharyngitis, unspecified (principal); Z03.818 Encounter for observation for suspected exposure to other biological agents ruled out
CPT/HCPCS: 0241U; 36415; 86308; 87651; 99282; 99283

== ENCOUNTER 2024-11-01 10:18 | Emergency (ER) | payer BC, SELFPAY ==
--- NOTE | ~2024-11-01 | US_ITS ---
EXAMINATION: US ABDOMEN LIMITED CLINICAL INFORMATION: Right upper quadrant pain. COMPARISON: CT from May 07, 2024 TECHNIQUE: Real-time imaging of the right upper quadrant abdominal viscera. FINDINGS: PANCREAS: Visualized portions are unremarkable. LIVER: The liver is normal in size. The liver contour is normal. Parenchymal echogenicity is normal. No focal hepatic lesion. There is no intrahepatic biliary duct dilatation seen. GALLBLADDER: The gallbladder is physiologically distended without evidence of stones, sludge, polyps, wall thickening or pericholecystic fluid. COMMON BILE DUCT: Normal in caliber measuring 0.3 cm in diameter. RIGHT KIDNEY: No hydronephrosis. No renal calculi or focal parenchymal lesions. The kidney measures 9.0 cm in maximum dimension. FREE FLUID: None. US/US abdomen limited IMPRESSION: Unremarkable right upper quadrant ultrasound Electronically signed by: Jesus Mcginnis MD 11/01/2024 01:06 PM EDT
[2024-11-01 10:24] VITALS: BP 121/65; PULSE 78; RESP 18; TEMP 37; O2SAT 99; BMI 21.8
[2024-11-01 11:01] LABS: MANUAL DIFF FLAG NO
[2024-11-01 11:02] LABS: Basophils Percent Auto 0.5 % (0-2); Eosinophils Percent Auto 0.7 % (0-4); Hematocrit 45.6 % (42.0-52.0); Hemoglobin 15.5 g/dl (14.0-18.0); Imm Gran Abs Auto 0.02 X10*3/uL (0.00-0.03); Imm Gran Pct Auto 0.3 % (0.0-0.4); Lymphocytes Absolute Auto 1.5 X10*3/uL (1.2-4.9); Lymphocytes Percent Auto 24.5 % (20-40); Mean Corpuscular Hemoglobin 28.8 pg (27.0-33.0); Mean Corpuscular Volume 84.8 fL (80.0-98.0); Mean Platelet Volume 10.3 fL (9.4-12.4); Monocytes Absolute Auto 0.4 X10*3/uL (0.1-1.2); Monocytes Percent Auto 7.4 % (2-11); Neutrophils Absolute Auto 3.9 x10*3/uL (2.0-8.3); Neutrophils Percent Auto 66.6 % (45-73); Platelet Count 203 X10*3/uL (160-400); Red Blood Count 5.38 X10*6/uL (4.60-5.80); Red Cell Distribution Width 13.5 % (11.0-16.0); White Blood Count 5.9 X10*3/uL (4.8-10.8)
[2024-11-01 11:03] LABS: Appearance Urine Clear; Color Urine Yellow; Glucose Urine UA Negative (Negative); Leukocyte Esterase Urine Negative (Negative); Nitrite Urine Negative (Negative); Specific Gravity - Urine <= 1.005 (1.005-1.025); Urine Blood Negative (Negative); Urine Ketones Negative (Negative); Urine Protein Negative (Neg-Trace)
--- NOTE | 2024-11-01 11:05 | ED_ITS ---
HPI - Abdominal Pain General Chief Complaint: Abdominal Pain Stated Complaint: Abd pain Time Seen by Provider: 11/01/24 13:00 Source: patient Mode of arrival: ambulatory Limitations: no limitations History of Present Illness ED Provider: Yung Carrasco HPI narrative: 24 yold male presents to the ED for headache, right sided upper quadrant abdominal pain presents to the ED, nausea, and vomitting for one day. Patient denies any lower abdominal pain or genitourinary symptoms. Related Data Previous Rx's ?Medication ?Instructions ?Recorded ondansetron 4 mg disintegrating 4 mg PO Q8H PRN nausea and 05/07/24 tablet vomiting #20 tabs ibuprofen 600 mg tablet 600 mg PO Q8H PRN fever or pain 08/18/24 #30 tabs phenol 1.5 %-glycerin 33 % mucosal 1 spray mucous membrane Q3-4H PRN 08/18/24 spray (Chloraseptic Max Sore sore throat #118 mL Throat) naproxen 500 mg tablet 500 mg PO BID PRN pain #14 tabs 11/01/24 Allergies Allergy/AdvReac Type Severity Reaction Status Date / Time No Known Allergies Allergy Verified 11/01/24 10:27 [facility] Past Medical History Medical History ADHD Mood disorder Anxiety Social History Social History Alcohol intake: current Alcohol intake frequency: does not drink Patient Tobacco Use Status: Never used Tobacco Smoked in Last 30 Days: No Use of substances other than those prescribed or required for medical reasons: Yes Substance Use Type: Marijuana Substance Use Frequency: Occasionally Advance Directives: No Advance Directives Information Provided: Yes Physical Exam ED Vital Signs: Vital Signs - 24 hr 11/01/24 10:24 11/01/24 13:01 11/01/24 16:36 Temperature 98.6 F 0 F L Pulse Rate 78 51 51 Respiratory Rate 18 16 16 Blood Pressure 121/65 121/62 121/62 Pulse Oximetry 99 99 99 Oxygen Delivery Method Room Air Room Air Room Air BMI result Body Mass Index 21.8 Const General: cooperative, healthy appearing, comfortable, no acute distress, well developed, alert, awake and Physically active Orientation/consciousness: patient oriented x3 HENMT Head: Yes normal to inspection, Yes No palpable skull fracture present, Yes normocephalic and Yes atraumatic Throat: Yes posterior oropharynx normal, Yes tonsils normal and Yes uvula midline Eyes General: appearance normal, both eyes and all related structures Neck Neck: Yes normal visual inspection, Yes full ROM, Yes no lymphadenopathy, Yes no meningeal signs, Yes trachea midline, Yes supple, No anterior neck swelling and No tender Chest Chest palpation & inspection: normal inspection of the chest and normal palpation of entire chest wall Resp Effort & Inspection: normal respiratory effort and able to speak in complete sentences Auscultation: clear to auscultation bilaterally Cardio Jugular venous distension: no JVD Heart sounds: S1 normal heart sound present and S2 normal heart sound present GI Inspection: Yes normal to inspection Palpation (GI): Soft to palpation, not firm, Tenderness to palpation present (GI) in the RUQ, no guarding and not rigid General: Yes no CVA tenderness Back/Spine/Pelvis Back: no CVA tenderness and No back tenderness Skin General skin exam: no rashes or lesions noted, elasticity normal and turgor normal Neuro General: patient oriented x3, gait normal, tone normal, moves all extremities, Normal light touch and pain sensation, no meningeal signs, no focal motor deficits, CN's II-XI intact bilaterally and normal sensation to monofilament Extrem General: Yes normal to inspection, Yes full ROM and Yes capillary refill normal Psych Appearance: grossly normal, well kempt and not disheveled Course Course Course Narrative: 24 yo male with no sig PMH here with waking up RUQ pain and headache with mild nausea and one episode of vomiting - no fevers, no travel, no diarrhea or change in stool. No sick contacts. He has mild sore throat at this time labs, viral panel, strep swab, RUQ for biliary colic. this is a RAPID medical screening exam the rest of the history and physical exam is to be done by the main provider. SOCO 11/01/24 1106am Medical Decision Making Medical Decision Making MDM Narrative: 24-year-old male presents to ED with headache right-sided upper abdominal pain and nausea for 1 day. Patient denies any lower abdominal pain or genitourinary symptoms. Labs were reassuring. UA for negative for any bloody UTI. SARs strep negative. Abdominal ultrasound negative for cholecystitis. Presently not suspecting appendicitis, pancreatitis, peritonitis, perforation, kidney stones, testicular torsion, or any other life-threatening etiology. Patient explained worrisome signs and informed to return to the ED immediately Differential Diagnosis Differential Diagnoses: The differential diagnosis associated with the presentation includes (Cholecystitis, pancreatitis, GERD) Lab Data MDM Lab Attestation statement: I reviewed the patient's lab results. 11/01/24 10:54 11/01/24 10:54 Labs: Lab Results 11/01/24 11/01/24 11/01/24 Range/Units 10:54 10:56 11:26 WBC 5.9 (4.8-10.8) X10*3/uL RBC 5.38 (4.60-5.80) X10*6/uL Hgb 15.5 (14.0-18.0) g/dl Hct 45.6 (42.0-52.0) % MCV 84.8 (80.0-98.0) fL MCH 28.8 (27.0-33.0) pg MCHC 34.0 (31.0-36.0) g/dl RDW 13.5 (11.0-16.0) % Plt Count 203 (160-400) X10*3/uL MPV 10.3 (9.4-12.4) fL Immature Gran % (Auto) 0.3 (0.0-0.4) % Neut % (Auto) 66.6 (45-73) % Lymph % (Auto) 24.5 (20-40) % [place] % (Auto) 7.4 (2-11) % Eos % (Auto) 0.7 (0-4) % Baso % (Auto) 0.5 (0-2) % Lymph # (Auto) 1.5 (1.2-4.9) X10*3/uL [place] # (Auto) 0.4 (0.1-1.2) X10*3/uL Eos # (Auto) 0.0 (0.0-0.4) X10*3/uL Baso # (Auto) 0.0 (0.0-0.2) X10*3/uL Abs Immat Gran (auto) 0.02 (0.00-0.03) X10*3/uL Absolute Neuts (auto) 3.9 (2.0-8.3) x10*3/uL Absolute Nucleated RBC 0.000 (0.0-0.012) X10*3/uL Nucleated RBC % (auto) 0.0 (0.0-0.2) /100WBC Sodium 141 (135-145) mmol/L Potassium 4.2 (3.3-5.1) mmol/L Chloride 109 H (96-108) mmol/L Carbon Dioxide 29 (22-29) mmol/L Anion Gap 7 L (12-20) BUN 13 (9-16) mg/dL Creatinine 0.98 (0.5-1.4) mg/dL Estim Creat Clear Calc 122.0 Estimated GFR > 60 Random Glucose 86 (60-115) mg/dL Calcium 10.4 H (8.4-10.2) mg/dL Total Bilirubin 1.0 (0.0-1.0) mg/dL Direct Bilirubin 0.4 (0.0-0.5) mg/dL AST 26 (5-37) U/L ALT 20 (0-40) U/L Alkaline Phosphatase 62 (39-117) U/L Total Protein 7.6 (6.5-8.0) g/dL Albumin 4.6 (3.5-5.0) g/dL Lipase 13 (8-78) U/L Urine Color Yellow Urine Appearance Clear Urine pH 7.0 (5.0-9.0) Ur Specific [place] <= 1.005 (1.005-1.025) Urine Protein Negative (Neg-Trace) mg/dL Urine Glucose (UA) Negative (Negative) mg/dL Urine Ketones Negative (Negative) mg/dL Urine Blood Negative (Negative) Urine Nitrite Negative (Negative) Ur Leukocyte Esterase Negative (Negative) Influenza Type A (PCR) NEGATIVE (Negative) Influenza Type B (PCR) NEGATIVE (Negative) RSV RNA Qual (PCR) NEGATIVE (Negative) SARS-CoV-2 RNA (RT-PCR) NEGATIVE (Negative) S. pyogenes GrpA ALDO Negative (Negative) Independent Interpretation I performed an independent interpretation of an: Ultrasound Independent Historian Clinical information obtained from an independent historian. History obtained from or confirmed by: Other (Patient) Prescription Management I considered prescription management with: Pain Medication Medications Administered Discontinued Medications Generic Name Dose Route Start Last Admin Trade Name Freq PRN Reason Stop Dose Admin Al Hydroxide/Mg Hydroxide 30 ml 11/01/24 14:18 11/01/24 14:37 Magnesium Hydrox/Alum Hydrox 30 Ml Oral.Susp PO 11/01/24 14:19 30 ml ONCE ONE Administration Belladonna Alkaloids/Phenobarbital 10 ml 11/01/24 14:18 11/01/24 14:35 Phenobarb/Hyoscy/Atropine/Scop 10 Ml Elixir PO 11/01/24 14:19 10 ml ONCE ONE Administration Famotidine 20 mg 11/01/24 14:18 11/01/24 14:33 Famotidine 20 Mg Tablet PO 11/01/24 14:19 20 mg ONCE ONE Administration Lidocaine HCl 15 ml 11/01/24 14:18 11/01/24 14:37 Lidocaine Hcl Viscous 2 % 15 Ml Solution MUCOUS MEM 11/01/24 14:19 15 ml ONCE ONE Administration Discharge Plan Discharge Clinical Impression: Abdominal pain Patient Disposition: Home, Self-Care Instructions: Abdominal Pain (ED) Additional Instructions: Your labs and ultrasound were reassuring. You will need to follow-up with primary care provider. Return to the ED immediately for any worsening abdominal pain, nausea, vomiting, flank pain, fever, chills, dysuria, hematuria, testicular pain, or any other concerning symptoms. Prescriptions: New naproxen 500 mg tablet 500 mg PO BID PRN (Reason: pain) Qty: 14 0RF No Action ibuprofen 600 mg tablet 600 mg PO Q8H PRN (Reason: fever or pain) Qty: 30 0RF Chloraseptic Max Sore Throat 1.5-33 % spray,non-aerosol 1 spray mucous membrane Q3-4H PRN (Reason: sore throat) Qty: 118 0RF Rx Instructions: leave on area for 15 seconds then spit out ondansetron 4 mg tablet,disintegrating 4 mg PO Q8H PRN (Reason: nausea and vomiting) Qty: 20 0RF Stand Alone Forms: Work/School Release Interventions: ED Discharge Assessment Last Done: 11/01/24 16:36 Discharge Date/Time: 11/01/24 16:41 Print Language: Hungarian
[2024-11-01 11:17] LABS: Alanine Aminotransferase 20 U/L (0-40); Albumin Level 4.6 g/dL (3.5-5.0); Alkaline Phosphatase 62 U/L (39-117); Anion Gap 7 (12-20); Aspartate Amino Transferase 26 U/L (5-37); Bilirubin Direct 0.4 mg/dL (0.0-0.5); Blood Urea Nitrogen 13 mg/dL (9-16); Calcium 10.4 mg/dL (8.4-10.2); Carbon Dioxide 29 mmol/L (22-29); Chloride 109 mmol/L (96-108); Estimated Glomerular Filt Rate > 60; Glucose Random 86 mg/dL (60-115); Lipase 13 U/L (8-78); Potassium 4.2 mmol/L (3.3-5.1); Sodium 141 mmol/L (135-145); Total Protein 7.6 g/dL (6.5-8.0)
[2024-11-01 11:41] LABS: IDNOW Serial# 55D5AD1C
[2024-11-01 11:42] LABS: Strep A Nucleic Acid Negative (Negative)
[2024-11-01 12:57] LABS: Influenza A PCR NEGATIVE (Negative); Influenza B PCR NEGATIVE (Negative); Resp Syncy Virus RNA Qual PCR NEGATIVE (Negative); SARS COV2 PCR INHOUSE NEGATIVE (Negative)
[2024-11-01 13:01] VITALS: BP 121/62; PULSE 51; RESP 16; O2SAT 99
[2024-11-01] MEDS: Famotidine 20 MG TABLET PO (14:33)
[2024-11-01] MEDS: PHENobarb/Hyoscy/Atropine/Scop 10 ML ELIXIR PO (14:35)
[2024-11-01] MEDS: Lidocaine HCl Viscous 2 % 15 ML SOLUTION MUCOUS MEM (14:37)
[2024-11-01] MEDS: Magnesium Hydrox/Alum Hydrox 30 ML ORAL.SUSP PO (14:37)
[2024-11-01 16:36] VITALS: BP 121/62; PULSE 51; RESP 16; TEMP -17.7; TEMP 0; O2SAT 99
== END 2024-11-01 16:41 | disposition home or self-care (01) ==
PROVIDERS: Emergency Medicine; Emergency Provider Emergency Medicine Emergency Medical Services; PCP Pediatrics
DX: R10.11 Right upper quadrant pain (principal); R11.2 Nausea with vomiting, unspecified; Z03.818 Encounter for observation for suspected exposure to other biological agents ruled out; Z79.899 Other long term (current) drug therapy
CPT/HCPCS: 0241U; 36415; 76705; 80048; 80076; 81003; 83690; 85025; 87651; 99284

== ENCOUNTER → 2024-11-01 11:05 | Outpatient (BNV) | payer BC, SELFPAY | PROVIDERS: Emergency Provider Emergency Medicine Emergency Medical Services; PCP Pediatrics; Visit Provider Radiology Diagnostic Radiology | DX: R10.11 Right upper quadrant pain (principal) | CPT/HCPCS: 76705 ==

== ENCOUNTER 2025-02-19 11:21 | Emergency (ER) | payer BC, SELFPAY ==
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
[2025-02-19 11:40] VITALS: BP 122/63; PULSE 58; RESP 16; TEMP 36.4; O2SAT 97; BMI 23.1
[2025-02-19 14:08] VITALS: BP 135/53; PULSE 66; RESP 16; O2SAT 97
[2025-02-19 16:39] VITALS: BP 125/60; PULSE 60; RESP 16; O2SAT 99
[2025-02-19 17:28] VITALS: BP 125/60; PULSE 60; RESP 16; TEMP 36.1; O2SAT 99
== END 2025-02-19 17:29 | disposition short-term general hospital (02) ==
PROVIDERS: Emergency Provider Emergency Medicine
DX: S06.9X9A Unspecified intracranial injury with loss of consciousness of unspecified duration, initial encounter (principal); S00.81XA Abrasion of other part of head, initial encounter; S02.2XXA Fracture of nasal bones, initial encounter for closed fracture; M54.2 Cervicalgia; R51.9 Headache, unspecified; Y04.8XXA Assault by other bodily force, initial encounter; Y92.310 Basketball court as the place of occurrence of the external cause; Y93.59 Activity, other involving other sports and athletics played individually; Y99.8 Other external cause status
CPT/HCPCS: 70450; 70486; 72125; 99285

== ENCOUNTER → 2025-02-19 11:42 | Outpatient (BNV) | payer BC, SELFPAY | PROVIDERS: Emergency Provider Emergency Medicine; Visit Provider Radiology Diagnostic Radiology | DX: S02.2XXA Fracture of nasal bones, initial encounter for closed fracture (principal); M54.2 Cervicalgia; W22.8XXA Striking against or struck by other objects, initial encounter | CPT/HCPCS: 70450; 70486; 72125 ==